=== PATIENT | female | born 1940 | race Caucasian/White ===

== ENCOUNTER → 2017-07-12 | Outpatient (CLI) | payer MEDICARE, OTHER ==
[2013-08-20 13:03] VITALS: BP 156/85
[~2017-07-12] MED LIST: ALBUTEROL0.09 MG/A4 IH; CALAN SR120 MG PO; CALCIUM + D 6001 TA1 PO; DUO-KAPS1 CAP PO; EFFEXOR XR75 MG PO; FLEXERIL10 MG PO; GOOD SENSE ASPI81 M1 PO; LISINOPRIL10 MG PO; LORTAB 5/500 501 TAB PO; LUTEIN6 M1 PO; MELOXICAM15 MG PO; PRILOSEC 20MG20 MG PO; SYMBICORT1 AE3 IH; [UNRECOGNIZED DRUG - OTHER] PO
== END ==
LOC: RAD 07:17
DX: I65.23 Occlusion and stenosis of bilateral carotid arteries (principal); I25.10 Atherosclerotic heart disease of native coronary artery without angina pectoris; R05 Cough

== ENCOUNTER → 2018-09-25 | Outpatient (CLI) | payer MEDICARE, OTHER ==
[2013-08-20 13:03] VITALS: BP 156/85
== END ==
LOC: MAMMO 09-18 13:45 → RAD 09-18 13:45
DX: Z13.820 Encounter for screening for osteoporosis (principal); M81.0 Age-related osteoporosis without current pathological fracture; M85.851 Other specified disorders of bone density and structure, right thigh

== ENCOUNTER → 2018-09-25 | Outpatient (CLI) | payer MEDICARE, OTHER ==
[2013-08-20 13:03] VITALS: BP 156/85
== END ==
LOC: MAMMO 09-18 13:00
DX: Z12.31 Encounter for screening mammogram for malignant neoplasm of breast (principal)

== ENCOUNTER → 2020-04-07 | Outpatient (CLI) | payer MEDICARE, OTHER ==
[2019-02-01 12:06] VITALS: BP 128/59
[~2020-04-07] MED LIST changes: +ATORVASTATIN CA40 MG PO; +CRANBERRY200 MG PO; +DITROPAN XL 5MG5 M1 PO; +GLUCOSAMIN-CHO1 EACH PO; +LOSARTAN POTAS100 MG PO; +NATURE'S BLE1000 MCG PO; +NORVASC 10MG10 MG PO; +VENLAFAXINE HCL75 M3 PO
== END ==
LOC: RAD 10:00
DX: I77.810 Thoracic aortic ectasia (principal); I51.7 Cardiomegaly; F17.200 Nicotine dependence, unspecified, uncomplicated
CPT/HCPCS: Q9967

== ENCOUNTER → 2020-04-27 | Outpatient (CLI) | payer MEDICARE, OTHER ==
[2019-02-01 12:06] VITALS: BP 128/59
== END ==
LOC: RAD 15:40
DX: R94.31 Abnormal electrocardiogram [ECG] [EKG] (principal); R53.83 Other fatigue

== ENCOUNTER → 2021-04-08 | Outpatient (CLI) | payer MEDICARE, OTHER | LOC: RAD 08:57 | DX: I77.810 Thoracic aortic ectasia (principal); I51.7 Cardiomegaly | CPT/HCPCS: Q9967 ==

== ENCOUNTER → 2021-11-15 | Outpatient (CLI) | payer MEDICARE, OTHER | LOC: RAD 10:00 | DX: G31.84 Mild cognitive impairment of uncertain or unknown etiology (principal) | CPT/HCPCS: A9585 ==

== ENCOUNTER → 2022-10-10 | Outpatient (CLI) | payer MEDICARE, OTHER | LOC: RAD 09:58 | DX: I25.10 Atherosclerotic heart disease of native coronary artery without angina pectoris (principal); I70.0 Atherosclerosis of aorta; J98.4 Other disorders of lung; I77.810 Thoracic aortic ectasia | CPT/HCPCS: Q9967 ==

== ENCOUNTER → 2023-10-23 | Outpatient (CLI) | payer MEDICARE, OTHER ==
[~2023-10-23] MED LIST changes: +Iohexol 300 - 100 ML VIAL IV ONE
== END ==
LOC: RAD 08:53
DX: I77.810 Thoracic aortic ectasia (principal)
CPT/HCPCS: Q9967

== ENCOUNTER 2023-11-10 14:12 | Inpatient (IN) | payer MEDICARE, OTHER ==
[~2023-11-10] VITALS: Ht 160 cm; Wt 57.3 kg
[~2023-11-10 14:12] MED LIST changes: -Iohexol 300 - 100 ML VIAL IV ONE; +MEMANTINE HCL10 MG PO; +SOLIFENACIN SUCC5 MG PO
[2023-11-10 14:30] VITALS: BP 106/62
[2023-11-10] MEDS ORDERED: traMADol 50 MG TAB PO PRN (15:00)
[2023-11-10] MEDS ORDERED: Acetaminophen 325 MG TAB PO PRN (15:00)
[2023-11-10 17:29] VITALS: BP 116/71
--- NOTE | 2023-11-10 18:52 | NUR ---
REPORT TO DELMY SALDIVAR.
[2023-11-10] MEDS ORDERED: Atorvastatin 20 MG TAB PO SCH (21:00)
[2023-11-11 06:15] VITALS: BP 125/68
--- NOTE | 2023-11-11 07:15 | NUR ---
Report received and care assumed. Pt resting in bed with eyes closed and no signs of distress or discomfort noted at this time. Call light in reach.
[2023-11-11] MEDS ORDERED: amLODIPine 5 MG TAB PO SCH (09:00)
[2023-11-11] MEDS ORDERED: Losartan 50 MG TAB PO SCH (09:00)
[2023-11-11] MEDS ORDERED: Memantine 5 MG TAB PO SCH (09:00)
--- NOTE | 2023-11-11 09:45 | NUR ---
Pt states that she is "just so foggy" this morning and requests to go back to sleep for a little while. Medication provided and assessment completed. Pt denies pain at this time. Splint remains on right distal leg with capillary refill less than 3 seconds distal to splint. No other needs or concerns at this time. Assisted back to bed, call light in reach, bed alarm on. Heating pad provided for comfort per pt request.
[2023-11-11 17:20] VITALS: BP 104/66
--- NOTE | 2023-11-11 18:48 | NUR ---
Pt requests medication for pain. States general all over ache. Pain 5/10. Tylenol given per PRN orders, and pt educated about tramadol still available if pain persists. Repositioned for comfort.
--- NOTE | 2023-11-11 19:07 | NUR ---
Report given to Adeola and care transferred at this time.
[2023-11-12 05:42] VITALS: BP 134/79
--- NOTE | 2023-11-12 13:29 | NUR ---
Pt Ox4, up to WC NWB 1A. Splint to RLE remains intact, toes warm with + cap refill, bruising to toes and swelling to foot. Pt receiving scheduled APAP for pain, has not requested any add'l meds, informed that she has stronger meds if needed.
--- NOTE | 2023-11-12 14:40 | NUR ---
Report received from DELMY Altamirano. Pt in bed resting, prn pain med provided per request.
[2023-11-12 18:29] VITALS: BP 117/70
--- NOTE | 2023-11-12 18:53 | NUR ---
Report given to PN. Alyson
--- NOTE | 2023-11-12 19:40 | NUR ---
Report received from Felicia BROCK. Resting supine in bed watching TV. Assisted to BR with SBA, pivot transfer from bed to W/C then to toilet. Assisted back to bed. Assessment completed. A/O x2, thought she was in [place] but reorietated easily, forgetful. Rates pain to abdominal area 3/10, describes as "sore muscles" and states tolerable. States some low back pain as well. Splint to RLE CDI. [facility] WNL. Denies problems with B&B. Bed alarm on. Call light in reach. Denies questions, wants or needs.
--- NOTE | 2023-11-12 22:12 | NUR ---
Up to BR with SBA. Pivot transfer. States having lower abdominal and back pain 5/10. Tylenol given and heat back applied.
--- NOTE | 2023-11-13 05:02 | NUR ---
Tylenol taken for pain 5/10 to L hip\leg area. Reports getting some sleep through the night.
[2023-11-13 05:54] VITALS: BP 154/71
--- NOTE | 2023-11-13 06:58 | NUR ---
Report to Florence BROCK.
--- NOTE | 2023-11-13 14:06 | NUR ---
IT WAS REPORTED THAT PATIENT HAD ABDOMINAL PAIN, WHEN ASKED, PATIENT DENIED PAIN. SHE HAD COMPLAINTS OF PAIN IN LOW BACK 2/10. AFTER PAIN MED GIVEN SHE RATED PAIN A 5/10. PATIENT REPORTED TO THERAPY SHE HAD PAIN IN RIGHT LOWER LEG. PHYSICIAN NOTIFIED, WENT AND SPOKE WITH PATIENT AND DENIED PAIN. DURING THERAPY AGAIN, PATIENT HAD COMPLAINTS OF PAIN IN THAT RIGHT LOWER LEG AGAIN. PHYSICIAN NOTIFIED ANDF IS SPEAKING WITH PATIENT AGAIN.
--- NOTE | 2023-11-13 14:58 | NUR ---
Pt. complained of burning in RLE. She has splint on RLE and has alot of eccymosis noted to toes anterior and distal side. pt does have swelling on foot at least plus two but unable to get fingers in far enought to palpate pulses. She is good about elevated her foot on pillows.
--- NOTE | 2023-11-13 15:00 | NUR ---
Jenny PAYAN notified of pt sensation of pain in splint and will see pt after ER. Jenny had went down earlier to see pt and pt declined stating pain was gone.
[2023-11-13 17:42] VITALS: BP 116/64
--- NOTE | 2023-11-13 18:30 | NUR ---
PT. COMPLAINED OF BURING ON RT ANKLE. WEN LYON NOTIFIED INTO SEE ANKLE AND AREA CLEANED AND TELFA APPLIED PER WEN ALONG WITH PADDING AND SPLINT REPLACED PER WEN LYON. PT RT ANKLE PLACED ON PILLOWS AND ELEVATED. PT DID STATES IT DOES FEEL BETTER. AARON LYON ALSO NOTIFIED OF RASH ON BACK WITH SCABBED AREAS.
--- NOTE | 2023-11-13 19:34 | NUR ---
Report received from Josi BROCK. Resting supine in bed with Son at bedside. Requested analgesic, Tylenol provided at this time, too early for Tramadol. Rates pain 4/10 to RLE and lower back. Having itching to R shoulder blade/back. Scant rash dry rash noted. Provider notified and order received to try lotion for dry skin. Also discussed with provider of noted dark, oderous urine. Order for UA received. Discussed orders with Son and patient, discussed new order for doxycyline PO for noted wounds under splint. Splint CDI with [facility] WNL. Assessment completed. Denies further questions, wants or needs.
[2023-11-13 22:31] LABS: URINE APPEARANCE CLEAR (CLEAR); URINE BILIRUBIN NEGATIVE (NEGATIVE); URINE BLOOD NEGATIVE (NEGATIVE); URINE COLOR LIGHT YELLOW (YELLOW); URINE GLUCOSE NEGATIVE (NEGATIVE); URINE KETONE NEGATIVE (NEGATIVE); URINE LEUKOCYTE ESTERASE 1+ (NEGATIVE); URINE NITRATE NEGATIVE (NEGATIVE); URINE PROTEIN(semi-quant) NEGATIVE (NEGATIVE)
--- NOTE | 2023-11-14 00:37 | NUR ---
Up to BS with 1:1 pivot assist. Rates pain 4/10 to lower back. Tylenol taken at this time.
--- NOTE | 2023-11-14 05:00 | NUR ---
Up to BSC. Medicated for pain 12/05 per her report. Tramadol taken at this time, with other AM scheduled medications. Reports got some rest. Denies itch to back at this time.
[2023-11-14 05:47] VITALS: BP 110/64
--- NOTE | 2023-11-14 06:26 | NUR ---
Ua shown to Roshan HOUSER
--- NOTE | 2023-11-14 06:56 | NUR ---
Report to Florence BROCK.
[2023-11-14] MEDS ORDERED: Doxycycline Monohydrate 100 MG CAPSULE PO SCH (07:00)
--- NOTE | 2023-11-14 13:59 | NUR ---
PATIENT UP FOR BREAKFAST. SHE ATE ABOUT 10% OF BREAKFAST. PATIENT STATED THAT SHE WAS IN PAIN AND UNABLE TO EAT. SHE WAS GIVEN TYLENOL. AFTER BREAKFAST SHE LAYED BACK DOWN IN BED TO REST THE CHAIR SHE SAID WAS TO UNCOMFORTABLE. STAFF OFFERED TO ADJUST PILLOWS, APPLY ICE OR HEAT, BUT PATIENT REFUSED AND LAYED IN BED. AT 1100 PATIENT WAS OFFERED HER ULTRAM FOR PAIN AND SHE ACCEPTED. FOR LUNCH SHE SAT IN HER CHAIR WITHOUT DIFFICULTY AND ATE 70% OF LUNCH. WHEN REASSESSED FOR PAIN, SHE STATED SHE FELT MUCH BETTER. AFTER LUNCH SHE BRUSHED TEETH, DID HER HAIR AND WENT TO THERAPY. SHE HAS A LARGE PURPLE BRUISE ON THE BACK OF HER RIGHT UPPER LEG. THE PATIENT PROCESS MOLD TECHNICIAN CALLED THE ORTHO DR, AND WAS TOLD THAT DR. KNAPP WILL REVIEW AND AND CONTACT THE SON.
[2023-11-14 18:00] VITALS: BP 108/63
[2023-11-14] MEDS ORDERED: oxyCODONE 5 MG TAB PO PRN (18:00)
--- NOTE | 2023-11-14 19:29 | NUR ---
Report received from Florence BROCK. Patient resting supine in bed with eyes closed. Respirations even and non-labored, no signs of distress. Bed alarm on. Call light in reach.
--- NOTE | 2023-11-14 20:06 | NUR ---
Awakened by visitor. Assisted to BR via W/C, pivot transfer. Voids, urine still dark. Denies pain/burning. To sink and performed own oral cares. Assisted back to bed. Rates pain 4/10 but "not too bad". Splint to RLE CDI. [facility] WNL. Assessment completed. Visiting with daughter. Denies questions, wants or needs. Bed alarm on. Call light in reach.
--- NOTE | 2023-11-15 01:49 | NUR ---
Pain report to L buttock/hip area. Rates 03/06. Roxicodone 2.5 Mg taken at this time.
--- NOTE | 2023-11-15 03:19 | NUR ---
Rests quietly with eyes closed. RR even, non-labored. No signs of pain/distress. Bed alarm on. Call light in reach.
--- NOTE | 2023-11-15 05:46 | NUR ---
Pain to L buttock/Posterior hip 6/10. Tramadol taken with AM medications.
[2023-11-15 06:09] VITALS: BP 136/75
--- NOTE | 2023-11-15 06:57 | NUR ---
Report to Isabella BROCK.
--- NOTE | 2023-11-15 07:00 | NUR ---
RESUMED CARE FROM DELMY RAMÍREZ.
--- NOTE | 2023-11-15 07:00 | NUR ---
RESUMED CARE FROM ELIANA RAMÍREZ.
--- NOTE | 2023-11-15 07:07 | NUR ---
Resumed care from Alyson MONROY.
--- NOTE | 2023-11-15 08:35 | NUR ---
PT WAS IN RECLINER WITH CALL LIGHT IN PLACE EATING BREAKFAST. PT STATES THAT HER BACK PAIN IS STILL A 5/10 PAIN IN HER BACK AFTER TYLENOL WAS ADMINISTERED AT 0730. SHE STATED THAT SHE FEELS DRY. THIS NURSE EXPLAINED THAT COULD BE A SIDE EFFECT OF THE MEDICATIONS AND TO KEEP DRINKING WATER. OFFERED PT CHAPSTICK TO HELP WITH LIP DRYNESS. PT STATED THAT SHE WAS CONFUSED BUT WAS ABLE TO ANSWER ALL ORIENTATION QUESTIONS.
[2023-11-15] MEDS ORDERED: Mouth Moisturizer Spray 30 ML BOTTLE MM PRN (10:30)
--- NOTE | 2023-11-15 10:45 | NUR ---
Dr. WELDON IN TO SEE PATIENT AFTER SWING BED MEETING TO ASSESS PT SPLINT AND WOUNDS. ADVISED REMOVING SPLINT TO PLACE BOOT, GIVING PT TORDOL FOR PAIN CONTROL, SALIVA REPLACEMENT ORDERED, AND A CONSULT FOR SPEECH THERAPY PLACED.
--- NOTE | 2023-11-15 11:08 | NUR ---
PLACED TEFLA AND BOOT ON PATIENT. PT REPORTS THE BOOT FEELS COMFORTABLE AND DOESN'T HAVE ANY DISCOMFORT AT THIS TIME.
--- NOTE | 2023-11-15 11:10 | NUR ---
RIGHT ANKLE HAS ABRASIONS ON MEDIAL AND LATERAL ASPECTS WITH BLISTERING NOTED IN MULTIPLE AREAS.
[2023-11-15] MEDS ORDERED: Ketorolac 10 MG TAB PO SCH (12:00)
--- NOTE | 2023-11-15 13:10 | NUR ---
SPOKE WITH SON FREIDA AND UPDATED ON PATIENT STATUS AND PLAN OF CARE. REQUESTED HE BRING IN BACK BRACE FROM HOME RECOMMENDED FROM OT JANETTE SHEPPARD. SON STATES HE WILL BE IN TONIGHT WITH BRACE.
--- NOTE | 2023-11-15 13:36 | NUR ---
PADDING INSIDE BOOT TO RLE REMOVED PER PATIENT REQUEST. ICE APPLIED AT THIS TIME WITH FOOT ELEVATED LAYING SUPINE IN BED. TYLENOL PROVIDED FOR INCREASED PAIN. BED ALARMED, CALL LIGHT WITHIN REACH
[2023-11-15] MEDS ORDERED: Pregabalin 50 MG CAP PO SCH (14:00)
--- NOTE | 2023-11-15 14:07 | NUR ---
SPOKE WITH DR. WELDON ABOUT PT HIP AND BACK PAIN. PT DESCIBES IT A BURNING PAIN. DR. WELDON ORDERED LYRICA WHICH WAS ADMINISTERED TO THE PATIENT.
--- NOTE | 2023-11-15 16:30 | NUR ---
NURSE BURGOS FROM [employer] [employer]S[facility]ANT AT [facility] CONFIRMED PROCEDURE TIME OF 130PM ON MONDAY, PATIENT IS TO ARRIVE AT 1130. LOVENOX INJECTIONS TO BE HELD 48 HOURS PRIOR TO PROCEDURE. NO EATING AFTER MIDNIGHT. DR. WELDON NOTIFIED.
[2023-11-15 17:38] VITALS: BP 122/70
--- NOTE | 2023-11-15 17:50 | NUR ---
DR. WELDON IN WITH PATIENT AND FAMILY AT THIS TIME. PLAN OF CARE DISCUSSED. PATIENT AGREEABLE TO PROCEDURE ON MONDAY. TRANSPORT TO BE DISCUSSED WITH FAMILY BY [facility].
--- NOTE | 2023-11-15 18:54 | NUR ---
REPORT TO DELMY MCKEON.
--- NOTE | 2023-11-15 20:15 | NUR ---
PTS DRESSING ON HER R ANKLE CHANGED AT THIS TIME. SOME DRAINAGE NOTED TO GAUZE.
[2023-11-16 05:50] VITALS: BP 149/73
--- NOTE | 2023-11-16 07:00 | NUR ---
RESUMED CARE FROM DELMY MCKEON.
--- NOTE | 2023-11-16 07:08 | NUR ---
RESUMED CARE FROM LINDA BROCK.
--- NOTE | 2023-11-16 08:50 | NUR ---
PATIENT DISCHARGED FROM SWINGBED TO ACUTE.
[2023-11-17] MEDS ORDERED: POLYETHYLE17 GM/Dose PO (08:55)
[2023-11-17] MEDS ORDERED: [UNRECOGNIZED DRUG - OTHER] MM (08:55)
[2023-11-17] MEDS ORDERED: LYRICA100 MG PO (08:56)
[2023-11-17] MEDS ORDERED: NALOXONE H0.4 MG/1 M IV (08:57)
[2023-11-17] MEDS ORDERED: KETOROLAC10 MG PO (08:57)
[2023-11-17] MEDS ORDERED: ACETAMINOPHEN325 M1 PO (08:57)
== END 2023-11-16 08:51 | disposition short-term general hospital (02) | DRG 552 ==
LOC: MED/SURG 14:12
PROVIDERS: ADMIT Family Medicine
DX: S32.049A Unspecified fracture of fourth lumbar vertebra, initial encounter for closed fracture (principal); S82.891A Other fracture of right lower leg, initial encounter for closed fracture; S91.001D Unspecified open wound, right ankle, subsequent encounter; I10 Essential (primary) hypertension; F03.90 Unspecified dementia, unspecified severity, without behavioral disturbance, psychotic disturbance, mood disturbance, and anxiety; R53.81 Other malaise; G89.4 Chronic pain syndrome; W18.30XA Fall on same level, unspecified, initial encounter; Z79.82 Long term (current) use of aspirin; Z87.891 Personal history of nicotine dependence; Z88.2 Allergy status to sulfonamides
CPT/HCPCS: J1650; L4386

== ENCOUNTER → 2024-01-25 | Outpatient (CLI) | payer MEDICARE, OTHER ==
[~2024-01-25] MED LIST changes: +ACETAMINOPHEN325 M1 PO; +KETOROLAC10 MG PO; +LIDOCAINE PAIN1 EACH TP; +LYRICA100 MG PO; +NALOXONE H0.4 MG/1 M IV; +POLYETHYLE17 GM/Dose PO; +TIZANIDINE HYDRO2 M1 PO; +[UNRECOGNIZED DRUG - OTHER] MM
== END ==
LOC: MAMMO 15:28
DX: Z12.31 Encounter for screening mammogram for malignant neoplasm of breast (principal)

== ENCOUNTER → 2024-02-16 | Outpatient (CLI) | payer MEDICARE, OTHER | LOC: RAD 15:21 | DX: M54.17 Radiculopathy, lumbosacral region (principal); L05.91 Pilonidal cyst without abscess ==